=== PATIENT | male | born 1960 | race Caucasian/White ===

== ENCOUNTER → 2017-11-25 | Day surgery (SDC) | payer OTHER ==
[~2017-11-25] MED LIST: Cyanocobalamin (Vitamin B12) 1,000 MCG/ML SDV IM ONE; Glycopyrrolate 0.2 MG/ML 2 ML SDV IVPUSH ONE; Lactated Ringers 1,000 ML IV SCH; MVI, Adult with Vitamin K 10 ML, Thiamine 200 MG, Chromium/Copper/Mang/Selen/Zn 1 ML in... IV ONE; Midazolam 1 MG/ML 2 ML SDV ONE; Propofol 200 MG/20 ML SDV ONE; fentaNYL 100 MCG/2 ML SDV ONE
--- NOTE | 2017-11-26 16:43 | OR ---
DATE OF PROCEDURE: 11/25/2017 PREOPERATIVE DIAGNOSIS: Severe reflux esophagitis associated with laparoscopic adjustable gastric band. POSTOPERATIVE DIAGNOSES: 1. Marked esophageal dilation and retained bile with distal esophagitis, status post laparoscopic adjustable gastric band. 2. Mild antral gastritis. OPERATIVE PROCEDURES: Esophagogastroduodenoscopy with antral biopsies for CLOtest. ANESTHESIA: IV sedation. INDICATION FOR PROCEDURE: The patient is status post laparoscopic adjustable gastric band placement in [place] and now presents with worsening symptoms of severe esophagitis. His band had been deflated, but he still has quite marked symptoms at this point. The plan is to proceed with an upper endoscopy for evaluation. Potential risks including bleeding and perforation were discussed, and the patient wishes to proceed. DETAILS OF PROCEDURE: The patient was taken to the operating room and placed in a left lateral decubitus position. IV sedation was administered, after which the upper GI endoscope was passed orally through the length of the esophagus, into the stomach with retroflexion view of the fundus, and thereafter through the pyloric channel and into the proximal duodenum. Findings included marked generalized dilation of esophagus, this contained some retained bile within it, and marked excoriation of the distal esophagus was noted extending onto the upper stomach. The band was in proper position and, otherwise, the lumen through the band imprint was widely open, i.e. there was no mechanical obstruction. Retroflexion failed to reveal any evidence of erosion of the band. There was some mild antral gastritis. Biopsies were obtained at that location for CLOtest. The pyloric channel and proximal duodenum were unremarkable. The scope was then withdrawn after the biopsies were completed. At this point, the patient meets strong indications for removal of band and conversion to Bereket-en-Y gastric bypass. He remains morbidly obese with type 2 diabetes and given all this, conversion to gastric bypass would be medically necessary. Rey Montez MD /[id number]
== END ==
LOC: JP.SDS 07:39
PROVIDERS: ATTEND Surgery
DX: K21.0 Gastro-esophageal reflux disease with esophagitis (principal); K29.50 Unspecified chronic gastritis without bleeding; I10 Essential (primary) hypertension; E11.9 Type 2 diabetes mellitus without complications; E66.01 Morbid (severe) obesity due to excess calories; Z68.42 Body mass index [BMI] 45.0-49.9, adult; Z98.84 Bariatric surgery status; Z98.890 Other specified postprocedural states; Z88.8 Allergy status to other drugs, medicaments and biological substances; Z91.048 Other nonmedicinal substance allergy status; Z79.4 Long term (current) use of insulin; Z79.82 Long term (current) use of aspirin; Z79.899 Other long term (current) drug therapy
CPT/HCPCS: 43239; 87081; J2250; J2704; J3010; J3411; J3420; J3490; J7120

== ENCOUNTER 2018-09-15 08:00 | Inpatient (IN) | payer OTHER ==
[~2018-09-15 08:00] MED LIST changes: +Acetaminophen 500 MG Tab PO ONE; -Cyanocobalamin (Vitamin B12) 1,000 MCG/ML SDV IM ONE; -Glycopyrrolate 0.2 MG/ML 2 ML SDV IVPUSH ONE; -Lactated Ringers 1,000 ML IV SCH; -MVI, Adult with Vitamin K 10 ML, Thiamine 200 MG, Chromium/Copper/Mang/Selen/Zn 1 ML in... IV ONE; -Midazolam 1 MG/ML 2 ML SDV ONE; -Propofol 200 MG/20 ML SDV ONE; +Scopolamine 1.5 MG Transdermal Patch TOP ONE; -fentaNYL 100 MCG/2 ML SDV ONE
[2018-09-15] MEDS ORDERED: Meropenem 500 MG SDV ONE (08:18)
[2018-09-15] MEDS ORDERED: Bupivacaine 0.5%/EPINEPHrine 1:200,000 50 ML MDV ONE (08:19)
[2018-09-15] MEDS ORDERED: Albuterol/Ipratropium 3.0-0.5 MG/3 ML Neb Soln NEB ONE (08:30)
[2018-09-15] MEDS ORDERED: ceFAZolin 2 GM in Premix Bag 1 BAG IV ONE (08:30)
[2018-09-15] MEDS: Dextrose 5%-Lactated Ringers 1,000 ML IV SCH ×2 (08:39→12:20)
[2018-09-15] MEDS ORDERED: Dexamethasone 4 MG/ML SDV ONE (08:40)
[2018-09-15] MEDS ORDERED: Neostigmine Methylsulfate 1 MG/ML 5 ML Syringe ONE (08:40)
[2018-09-15] MEDS ORDERED: Ondansetron 4 MG/2 ML SDV ONE (08:40)
[2018-09-15] MEDS ORDERED: Glycopyrrolate 0.2 MG/ML 5 ML MDV ONE (08:40)
[2018-09-15] MEDS ORDERED: Propofol 200 MG/20 ML SDV ONE (08:40)
[2018-09-15] MEDS ORDERED: Rocuronium 50 MG/5 ML Vial ONE (08:40)
[2018-09-15] MEDS ORDERED: Succinylcholine 200 MG/10 ML MDV ONE (08:40)
[2018-09-15] MEDS ORDERED: fentaNYL 250 MCG/5 ML SDV ONE ×2 (08:42→11:13)
[2018-09-15] MEDS ORDERED: Ketamine 500 MG/5 ML MDV IV SCH (09:45)
[2018-09-15] MEDS ORDERED: Labetalol 20 MG/4 ML Syringe IV ONE (12:15)
[2018-09-15] MEDS ORDERED: Dextrose 5%-Lactated Ringers 1,000 ML IV SCH (13:30)
[2018-09-15] MEDS ORDERED: Acetaminophen/HYDROcodone 325-5 MG Tab PO PRN (14:28)
[2018-09-15] MEDS ORDERED: HYDROmorphone 0.5 MG/0.5 ML Syringe IVPUSH PRN (14:29)
[2018-09-15] MEDS ORDERED: HYDROmorphone 1 MG/ML Syringe IV PRN (14:32)
[2018-09-15] MEDS ORDERED: Albuterol/Ipratropium 3.0-0.5 MG/3 ML Neb Soln INH PRN (14:33)
[2018-09-15] MEDS ORDERED: Metoclopramide 10 MG/2 ML SDV IVPUSH PRN (14:33)
[2018-09-15] MEDS ORDERED: SCOPOLAMINE PATCH ASK TOP SCH (14:33)
[2018-09-15] MEDS ORDERED: Glucose Gel 15 GM in 37.5 GM Tube PO PRN (14:54)
[2018-09-15] MEDS ORDERED: Glucagon,Human Recombinant 1 MG Vial IM PRN (14:54)
[2018-09-15] MEDS ORDERED: 50% Dextrose in Water 50 ML Syringe IVPUSH PRN (14:54)
[2018-09-15] MEDS: Albuterol/Ipratropium 3.0-0.5 MG/3 ML Neb Soln INH SCH ×2 (15:11→20:45)
[2018-09-15] MEDS: metFORMIN 500 MG Tab PO SCH (16:38)
[2018-09-15] MEDS ORDERED: Insulin Lispro 100 Units/ML 3 ML Vial SUBCUT ONE (16:45)
[2018-09-15] MEDS ORDERED: Insulin Lispro 100 Unit/ML 3 ML KwikPen SUBCUT ONE (17:00)
[2018-09-15] MEDS: Lactated Ringers 1,000 ML IV SCH (17:06)
[2018-09-15] MEDS: ceFAZolin 2 GM in Premix Bag 1 BAG IV SCH (20:23)
[2018-09-15] MEDS: Montelukast 10 MG Tab PO SCH ×2 (20:30→20:32)
[2018-09-15] MEDS ORDERED: Magnesium Sulfate (4.06 MEQ/ML) 1 GM/2 ML SDV IV SCH (20:45)
[2018-09-15] MEDS ORDERED: Potassium Chloride 20 MEQ in Premix Bag 1 BAG IV ONE (21:00)
[2018-09-15] MEDS ORDERED: Lidocaine 1% PF 2 ML SDV IV ONE (21:00)
[2018-09-15] MEDS: Amitriptyline 25 MG Tab PO SCH (21:47)
[2018-09-15] MEDS: Insulin Lispro 100 Unit/ML 3 ML KwikPen SUBCUT PRN (21:52)
[2018-09-16] MEDS: Magnesium Sulfate/Water 2 GM in Premix Bag 1 BAG IV SCH ×7 (00:05→21:02)
[2018-09-16] MEDS: Lactated Ringers 1,000 ML IV SCH (00:08)
[2018-09-16] MEDS: ceFAZolin 2 GM in Premix Bag 1 BAG IV SCH ×2 (03:58→13:43)
[2018-09-16] MEDS: Acetaminophen 325 MG Tab PO PRN ×4 (04:37→17:53)
[2018-09-16] MEDS: Fluticasone-Salmeterol 113-14 MCG Powder Inhalant INH SCH (07:02)
[2018-09-16] MEDS: Albuterol/Ipratropium 3.0-0.5 MG/3 ML Neb Soln INH SCH ×4 (07:02→21:00)
[2018-09-16] MEDS ORDERED: Lactated Ringers 1,000 ML IV SCH (07:13)
--- NOTE | 2018-09-16 08:03 | PN ---
DATE OF SERVICE: 09/16/2018 SUBJECTIVE: Jasson is postoperative day 1. Blood sugars have been elevated at 380, 268 and 170 this morning. His IV was changed from D5 LR to lactated Ringer's. Magnesium is 1.2 and potassium 3.2. He has already been ordered magnesium 2 g IV as well is K-Phos. Pain is controlled. He has been afebrile. Oral intake 920. Urine output 3050. He has been up and ambulating. REVIEW OF SYSTEMS: Remainder review of systems negative for any pertinent positives and negatives. OBJECTIVE: GENERAL: Jasson Timmons is a 57-year-old male. He is alert and orientated. VITAL SIGNS: TPR is 96, 99, 18, blood pressure 152/81. HEENT: Negative. NECK: Supple. HEART: Regular rate and rhythm. LUNGS: Clear. ABDOMEN: Dressings dry and intact. Abdominal binder is on. EXTREMITIES: Without peripheral edema. ASSESSMENT: Diagnostic laparoscopy with repair of incarcerated incisional hernia and umbilical hernia, placement of Vicryl mesh, low magnesium, low potassium and diabetes type 2. Date of surgery 09/15/2018 to Surgeon Rey Montez MD. PLAN: 1. Change the patient's status to inpatient due to electrolyte disturbances. 2. Decrease IV to TKO. 3. Check CBC, CMP, phos in a.m. Bri Mosquera PA-C /[id number]
[2018-09-16] MEDS: Aspirin 81 MG Tab.EC PO SCH (08:08)
[2018-09-16] MEDS: Loratadine 10 MG Tab PO SCH (08:09)
[2018-09-16] MEDS: metFORMIN 500 MG Tab PO SCH ×2 (08:09→18:07)
[2018-09-16] MEDS: Montelukast 10 MG Tab PO SCH ×2 (08:12→21:01)
[2018-09-16] MEDS: Azelastine Nasal Soln 30 ML Spray Bottle NASBOTH SCH (08:16)
[2018-09-16] MEDS: Insulin Lispro 100 Unit/ML 3 ML KwikPen SUBCUT PRN ×4 (08:33→22:13)
[2018-09-16] MEDS: Potassium Phosphates 20 MMOLE in Sodium Chloride 0.9% 250 ML IV SCH ×3 (10:31→17:49)
[2018-09-16] MEDS: SCOPOLAMINE PATCH CHECK TOP SCH (13:50)
[2018-09-16] MEDS: Amitriptyline 25 MG Tab PO SCH (21:02)
[2018-09-17] MEDS: Magnesium Sulfate/Water 2 GM in Premix Bag 1 BAG IV SCH ×3 (01:53→09:23)
[2018-09-17] MEDS: Acetaminophen 325 MG Tab PO PRN ×2 (01:58→09:33)
[2018-09-17] MEDS: Albuterol/Ipratropium 3.0-0.5 MG/3 ML Neb Soln INH SCH ×2 (07:26→11:05)
[2018-09-17] MEDS: Fluticasone-Salmeterol 113-14 MCG Powder Inhalant INH SCH (07:26)
[2018-09-17] MEDS: metFORMIN 500 MG Tab PO SCH (09:25)
[2018-09-17] MEDS: Loratadine 10 MG Tab PO SCH (09:26)
[2018-09-17] MEDS: Aspirin 81 MG Tab.EC PO SCH (09:26)
[2018-09-17] MEDS: Azelastine Nasal Soln 30 ML Spray Bottle NASBOTH SCH (09:27)
[2018-09-17] MEDS: SCOPOLAMINE PATCH CHECK TOP SCH (09:28)
[2018-09-17] MEDS: Insulin Lispro 100 Unit/ML 3 ML KwikPen SUBCUT PRN ×2 (09:35→11:49)
[2018-09-17] MEDS ORDERED: Potassium Phosphates 20 MMOLE in Sodium Chloride 0.9% 250 ML IV SCH (10:00)
[2018-09-17] MEDS ORDERED: Magnesium Hydroxide 400 MG/5 ML Susp 30 ML Cup PO ONE (12:09)
--- NOTE | 2018-09-17 13:35 | DISCH ---
ADMISSION DIAGNOSES: 1. Incisional hernia. 2. Status post Bereket-en-Y gastric bypass surgery. 3. Unspecified surgical malabsorption. 4. B12 deficiency. 5. Diabetes, type 2. 6. Hypercholesterolemia. 7. Hypertension. 8. Insomnia. 9. Obstructive sleep apnea, on CPAP. 10.Recurrent sinusitis. DISCHARGE DIAGNOSES: 1. Diagnostic laparoscopy with repair of incarcerated incisional hernia and umbilical hernia, placement of Vicryl mesh. Date of surgery: 09/15/2018. Surgeon: Rey Montez MD. 2. Low magnesium. 3. Low potassium. 4. Diabetes, type 2. HISTORY: Jasson Timmons is a 57-year-old male with a large incarcerated incisional hernia and umbilical hernia. After preoperative evaluation and discussion of possible risks and possible complications, he wished to proceed with surgical procedure. HOSPITAL COURSE: Jasson had his surgery on 09/15/2018. He had no operative complications. On postoperative day #1, he was on a regular diet. His activity was good. His potassium, phosphorus, and magnesium were low, so they were replaced by IV. Magnesium was 1.2, potassium was 3.2. On postoperative day #2, he was able to be discharged to home. Pain was managed. Activity was good. Oral intake adequate. He was afebrile. Potassium 3.2 and phosphorus 2.4. Magnesium was not rechecked. Prior to discharge, he was given K-Phos 60 mmol IV. PHYSICAL EXAMINATION: GENERAL: Jasson is a 57-year-old male. VITAL SIGNS: Height is 6 feet 1 inch, weight is 259 pounds, BMI is 34. TPR 96.1, 92, 16, blood pressure 156/79. HEENT: Negative. NECK: Supple. HEART: Regular rate and rhythm. LUNGS: Clear. ABDOMEN: Incision is good. Pressure dressing over midline incision. Abdominal binder is on. EXTREMITIES: Without peripheral edema. DISPOSITION: Discharged to home. CONDITION: Stable and improving. FOLLOWUP: Followup appointment with Bri Mosquera PA-C, at [facility] on 09/24/2018 at 9:30 a.m. He is to come at 9:00 a.m. before his appointment and check his CBC, BMP, BNP, phosphorus, and magnesium. NEW PRESCRIPTIONS: 1. Tylenol 650 mg q.4 hours p.r.n. pain. 2. Milk of magnesia 30 mL to take one daily, #2 were sent home with the patient. 3. Magnesium oxide 400 mg oral twice daily, #60, 11 refills. 4. Klor-Con/potassium chloride 20 mEq oral twice daily, #60. He is to resume home medication: 1. Elavil 25 mg oral at bedtime. 2. Azelastine 1 applicator nasal daily. 3. Calcium citrate one oral daily. 4. Vitamin B12 1000 mcg sublingual. 5. Lunesta 3 mg oral at bedtime. 6. Ferrous fumarate 324 mg oral daily. 7. Flonase 1 spray in each nostril daily. 8. Probiotic one tablet oral daily. 9. Claritin 10 mg oral twice daily. 10.Singulair 10 mg oral at bedtime. 11.Multivitamin one tablet twice daily. 12.Januvia 100 mg oral every morning. 13.Vitamin B complex one tablet oral daily. 14.Metformin 1000 mg oral twice daily. DIET: Step 4 gastric bypass diet. Drink 8 to 10 glasses of water a day. ACTIVITY: No lifting greater than 10 pounds for 6 weeks. Walk at least 6 times daily, distance and time as tolerated. Driving: Do not drive for 1 week. Shower/bathing: May shower. DISCHARGE INSTRUCTIONS: Notify provider if any fever, increased pain, nausea, or vomiting. Keep site clean and dry. Wear abdominal binder with pressure dressing over the former hernia site for 6 weeks and then as tolerated. SPECIAL INSTRUCTIONS: Use incentive spirometer 10 times every hour while awake for 1 week. Keep a record of blood sugars twice a day and as needed.
--- NOTE | 2018-09-23 09:21 | OR ---
DATE OF PROCEDURE: 09/15/2018 SURGEON: Rey Montez MD PREOPERATIVE DIAGNOSES: 1. Incarcerated incisional hernia. 2. Umbilical hernia. POSTOPERATIVE DIAGNOSES: 1. Incarcerated incisional hernia. 2. Umbilical hernia. OPERATIVE PROCEDURES: Diagnostic laparoscopy with: 1. Repair of incarcerated incisional hernia with mesh (12165). 2. Repair of umbilical hernia with mesh (46179). 3. Placement of Vicryl mesh to displace pelvic and abdominal wall from underlying viscera to limit adhesion formation (06934). ANESTHESIA: General. INDICATIONS FOR PROCEDURE: This is a 57-year-old presenting with a nonreducible incisional hernia located in the upper abdomen. He also has a smaller umbilical hernia which appears to be reducible. Plan is to proceed with repair of these using a mesh technique. Potential risks including bleeding, infection, injury to underlying viscera, problems with mesh becoming infected or the hernia recurring were all reviewed, and the patient wishes to proceed. DETAILS OF PROCEDURE: The patient was taken to the operating room, and after general endotracheal anesthesia was induced, Gaytan catheter was inserted, which was removed at the end of the procedure, and the abdomen was prepped and draped. In the left lateral abdomen, a transverse incision was made and the peritoneal cavity entered under direct vision with an Optiview trocar, inflated to 15 mmHg pressure of CO2. Laparoscope was reinserted. No underlying trocar insertion site injuries were seen. Following this, 5 mm trocars were placed in the left upper quadrant and left lower quadrant, and the abdomen examined. As expected, the patient was noted to have quite a bit of incarcerated material in the incisional hernia. This contained some omentum, as well as loops of small bowel, which were successfully removed by means of external pulsion and some blunting of harmonic scalpel dissection. Upon reduction of the hernia, the peritoneal sac was then dissected free and excised. The patient's abdominal wall stability would appeared to be enhanced by closure of the fascia. Given this, this was accomplished with a series of #1 Vicryl sutures placed from within. The pressure was reduced from 20 mmHg to 5 during this phase to allow the fascia to be approximated by means of the sutures and Ti-Knot devices. Following this, the peritoneum over the umbilical hernia site was excised as expected, but this did not have any incarcerated component to it. The incisional hernia was then reinforced with a 20.3 cm Ventralight mesh with the balloon positioning system. The balloon catheter was pulled through the center of the area of herniation, balloon was inflated, which brought the mesh up to the abdominal wall, which was then fixed with two circumferential rows of absorbable tacking screws. The balloon was then deflated and removed, and there appeared to be coverage of the hernia in all directions. A second mesh measuring 7.6 cm was then placed underneath the umbilical hernia and similarly fixed with two circumferential firings of the absorbable tacking screws. The patient was felt to be high risk for adhesion formation between the mesh as well as the pelvic and abdominal wall in general. Given this, a 12-inch square area of Vicryl mesh was placed underneath both areas of mesh and from there down into the pelvic area to displace those surfaces from the underlying viscera. Following this, the trocars were sequentially removed. The patient had received bilateral transversus abdominis plane blocks and the incision was re-anesthetized with 0.5% Marcaine. The fascia at the 12 mm site was closed with 0 Vicryl stitch and the skin incision with 4-0 Vicryl skin stitch. Dressing was applied. The patient was taken to the recovery room in satisfactory condition. There were no evident complications. Rey Montez MD /[id number]
== END 2018-09-17 14:05 | disposition home or self-care (01) | DRG 354 ==
LOC: JP.SDS 08:00 → JP.MS 11:30 → JP.SDS 09-16 07:19 → JP.MS 09-16 07:20
PROVIDERS: ADMIT Surgery; ATTEND Surgery
PROC: 0WUF4JZ Supplement Abdominal Wall with Synthetic Substitute, Percutaneous Endoscopic Approach (ICD-10-PCS; principal; 2018-09-15)
PROC: 0WUF4JZ Supplement Abdominal Wall with Synthetic Substitute, Percutaneous Endoscopic Approach (ICD-10-PCS; 2018-09-15)
PROC: 3E0M45Z Introduction of Adhesion Barrier into Peritoneal Cavity, Percutaneous Endoscopic Approach (ICD-10-PCS; 2018-09-15)
DX: K43.0 Incisional hernia with obstruction, without gangrene (principal); K91.2 Postsurgical malabsorption, not elsewhere classified; K42.9 Umbilical hernia without obstruction or gangrene; F32.9 Major depressive disorder, single episode, unspecified; H91.90 Unspecified hearing loss, unspecified ear; I10 Essential (primary) hypertension; E78.00 Pure hypercholesterolemia, unspecified; G47.00 Insomnia, unspecified; G47.33 Obstructive sleep apnea (adult) (pediatric); E11.9 Type 2 diabetes mellitus without complications; E53.8 Deficiency of other specified B group vitamins; E83.42 Hypomagnesemia; E87.6 Hypokalemia; J32.9 Chronic sinusitis, unspecified; E66.9 Obesity, unspecified; Z68.34 Body mass index [BMI] 34.0-34.9, adult; Z88.1 Allergy status to other antibiotic agents; Z86.010 Personal history of colon polyps; Z88.8 Allergy status to other drugs, medicaments and biological substances; Z98.84 Bariatric surgery status; Z91.048 Other nonmedicinal substance allergy status
CPT/HCPCS: 36415; 80053; 82962; 83036; 83735; 84100; 85027; 88302; 94640; 94762; A9270-GY; C1781; J0171; J0330; J0690; J1100; J1170; J1815; J1815-GY; J2001; J2020; J2185; J2405; J2704; J2710; J2795; J3010; J3475; J3480; J3490; J7042; J7050; J7120; J7620-GY

== ENCOUNTER 2018-10-13 05:29 | Day surgery (SDC) | payer OTHER ==
[2018-10-13] MEDS ORDERED: Acetaminophen 500 MG Tab PO ONE (05:45)
[2018-10-13] MEDS ORDERED: Scopolamine 1.5 MG Transdermal Patch TOP ONE (05:45)
[2018-10-13] MEDS ORDERED: Celecoxib 200 MG Cap PO ONE ×2 (05:45→07:15)
[2018-10-13] MEDS ORDERED: Dextrose 5%-Lactated Ringers 1,000 ML IV SCH (06:00)
[2018-10-13] MEDS ORDERED: Bupivacaine 0.5%/EPINEPHrine 1:200,000 50 ML MDV ONE (06:31)
[2018-10-13] MEDS ORDERED: Albuterol/Ipratropium 3.0-0.5 MG/3 ML Neb Soln NEB ONE (07:00)
[2018-10-13] MEDS ORDERED: Neostigmine Methylsulfate 1 MG/ML 5 ML Syringe ONE (07:04)
[2018-10-13] MEDS ORDERED: Dexamethasone 4 MG/ML SDV ONE (07:04)
[2018-10-13] MEDS ORDERED: fentaNYL 250 MCG/5 ML SDV ONE (07:04)
[2018-10-13] MEDS ORDERED: Rocuronium 50 MG/5 ML Vial ONE ×2 (07:04→07:58)
[2018-10-13] MEDS ORDERED: Glycopyrrolate 0.2 MG/ML 5 ML MDV ONE (07:04)
[2018-10-13] MEDS ORDERED: Midazolam 1 MG/ML 2 ML SDV ONE (07:04)
[2018-10-13] MEDS ORDERED: Propofol 200 MG/20 ML SDV ONE (07:04)
[2018-10-13] MEDS ORDERED: Ondansetron 4 MG/2 ML SDV ONE (07:04)
[2018-10-13] MEDS ORDERED: cefOXitin 2 GM in Sodium Chloride 0.9% 50 ML IV ONE (07:15)
[2018-10-13] MEDS ORDERED: Ketamine 500 MG/5 ML MDV IV SCH (08:00)
[2018-10-13] MEDS ORDERED: Ketamine 50 MG in Sodium Chloride 0.9% 49.5 ML IV SCH (08:00)
[2018-10-13] MEDS ORDERED: CHECK SCOPALAMINE PATCH TOP SCH (09:00)
[2018-10-13] MEDS ORDERED: hydrOXYzine HCl 100 MG/2 ML SDV IM ONE (09:00)
[2018-10-13] MEDS ORDERED: fentaNYL 100 MCG/2 ML SDV IVPUSH ONE (09:04)
[2018-10-13] MEDS ORDERED: Insulin Lispro 100 Unit/ML 3 ML KwikPen SUBCUT ONE (09:15)
[2018-10-13] MEDS ORDERED: Ondansetron 4 MG/2 ML SDV IVPUSH PRN (10:11)
[2018-10-13] MEDS ORDERED: Azelastine Nasal Soln 30 ML Spray Bottle NASBOTH PRN (10:17)
[2018-10-13] MEDS ORDERED: 50% Dextrose in Water 50 ML Syringe IVPUSH PRN (10:19)
[2018-10-13] MEDS ORDERED: Glucagon,Human Recombinant 1 MG Vial IM PRN (10:19)
[2018-10-13] MEDS ORDERED: Glucose Gel 15 GM in 37.5 GM Tube PO PRN (10:19)
[2018-10-13] MEDS: Heparin Sodium 5,000 Units/ML Vial SUBCUT SCH ×2 (12:43→21:29)
[2018-10-13] MEDS: metFORMIN 500 MG Tab PO SCH ×2 (12:44→17:42)
[2018-10-13] MEDS: Acetaminophen 500 MG Tab PO SCH ×3 (12:44→23:54)
[2018-10-13] MEDS ORDERED: SCOPOLAMINE PATCH CHECK TOP SCH (13:13)
[2018-10-13] MEDS ORDERED: Pantoprazole 40 MG Vial IVPUSH SCH (14:00)
[2018-10-13] MEDS: cefOXitin 2 GM in Sodium Chloride 0.9% 50 ML IV SCH ×2 (14:10→19:45)
[2018-10-13] MEDS: Insulin Lispro 100 Unit/ML 3 ML KwikPen SUBCUT PRN ×3 (14:11→21:36)
[2018-10-13] MEDS: Lactated Ringers 1,000 ML IV SCH (17:56)
[2018-10-13] MEDS ORDERED: Amitriptyline 25 MG Tab PO SCH (21:00)
[2018-10-13] MEDS ORDERED: Montelukast 10 MG Tab PO SCH (21:00)
[2018-10-14] MEDS: Lactated Ringers 1,000 ML IV SCH (01:41)
[2018-10-14] MEDS: cefOXitin 2 GM in Sodium Chloride 0.9% 50 ML IV SCH ×2 (02:13→08:36)
[2018-10-14] MEDS: Acetaminophen 500 MG Tab PO SCH (06:01)
[2018-10-14] MEDS ORDERED: Celecoxib 200 MG Cap PO SCH (08:00)
[2018-10-14] MEDS: metFORMIN 500 MG Tab PO SCH (08:36)
[2018-10-14] MEDS: Insulin Lispro 100 Unit/ML 3 ML KwikPen SUBCUT PRN (08:38)
--- NOTE | 2018-10-20 13:46 | OR ---
DATE OF PROCEDURE: 10/13/2018 PREOPERATIVE DIAGNOSIS: Chronic cholecystitis and cholelithiasis. POSTOPERATIVE DIAGNOSES: 1. Subacute and chronic cholecystitis and cholelithiasis. 2. Distended appendix with visible appendicolith in proximal appendix. PROCEDURE: Diagnostic laparoscopy with: 1. Cholecystectomy (48510). 2. Appendectomy (33532). ANESTHESIA: General. DIRECTOR OF STUDENT SERVICES: Bri Mosquera PA-C. INDICATIONS FOR PROCEDURE: This is a 57-year-old presenting with some recurrent right upper quadrant pain which was associated with cholelithiasis on workup. Plan is to proceed with a laparoscopic cholecystectomy. Potential risks of the procedure including bleeding and infection with possible injury to common bile duct, possible migration of stones in the common bile duct requiring additional procedures for correction were all reviewed. The patient also wishes to have his appendix evaluated so as to avoid possible subsequent need for appendectomy and it appears to be appropriate and appendectomy will be performed concurrently. Potential risks of that procedure including bleeding, infection, injury to the viscera in that area, and possible leak from appendiceal staple line were all likewise reviewed, and the patient wishes to proceed. DETAILS OF PROCEDURE: The patient was taken to the operating room and placed in a supine position. After general endotracheal anesthesia was induced, the abdomen was prepped and draped. In the right mid abdomen, laterally a transverse incision was made. The peritoneal cavity entered under direct vision with an Optiview trocar and inflated to 15 mmHg pressure with CO2. The patient was noted to have quite in the way of adhesions in the central abdomen related to the mesh repair, but the right lateral aspect of the abdomen was quite open. Given this, in the right lower quadrant, an additional 12 mm trocar was placed, and following this, a 12 mm epigastric trocar and one additional 5 mm right upper quadrant trocar were also placed. The examination at this point showed the gallbladder to be quite edematous and distended, consistent with some subacute inflammation on top of the more chronic inflammation. The appendix was also noted to be fairly distended distally with a visible appendicolith located in the proximal appendix and the decision at this point was made to proceed with a concurrent cholecystectomy and appendectomy. The gallbladder was then retracted anteriorly and laterally, and dissection began on the gallbladder neck with Harmonic scalpel at which point the gallbladder neck, cystic duct junction, and the adjacent cystic artery were well delineated. Three clips were placed proximally, one distally on these structures and they were divided. The gallbladder was then dissected off the gallbladder bed using Harmonic scalpel and delivered through the epigastric trocar site. There was a large amount of small stones present within the gallbladder and liver. Dissection was inspected, no bleeding or bile leaks were seen. Attention was then taken to the appendectomy. The mesoappendix was then dissected away from the base of the appendix at the junction of the cecum. Appendix was then divided off flush with the cecum with a LAMONT granado load and the mesoappendix was then divided with Harmonic scalpel. Appendix was then delivered through the right lateral trocar site. At that point, no further problems noted. A single Luis-Membreno drain was taken through the right upper quadrant trocar site and placed into the gallbladder bed. Trocars were removed. Fascia at the 12 mm site was closed with 0 Vicryl stitch and the skin with 4-0 Vicryl skin stitch. Dressing was applied. The patient was then taken to the recovery room in satisfactory condition. Physician election assistant, Bri Mosquera, played an essential role in assisting in this case helping to position the patient, retract structures as needed as well as suturing and cutting sutures as indicated. Her presence improved patient safety and decreased the operative time. Rey Montez MD /[id number]
--- NOTE | 2018-10-21 08:20 | DISCH ---
FINAL DIAGNOSES: 1. Subacute and chronic cholecystitis and cholelithiasis. 2. Engorged appearing appendix. 3. Bariatric surgery status. 4. Type 2 diabetes mellitus. 5. History of asthma. OPERATIVE PROCEDURES: Done on 10/13/18, diagnostic laparoscopy with: 1. Cholecystectomy. 2. Appendectomy. SUMMARY: This is a 57-year-old male presenting with some ongoing right upper quadrant pain and workup consistent with a chronic cholecystitis and cholelithiasis. On day of admission, the patient was admitted and underwent a laparoscopic cholecystectomy. Per the patient, possibly it very well could be appendix and this actually was quite engorged distally and did have a visible appendicolith within it, so appendectomy was performed concurrently. Postoperatively, no major problems were noted. The labs look good this morning, and he will be discharged home. Continued on Tylenol and Celebrex for pain. Otherwise, the drain will be removed and followup with Bri Mosquera will be at [facility] on 10/21/2018.
== END 2018-10-14 09:25 | disposition home or self-care (01) ==
LOC: JP.SDS 05:29 → JP.MS 08:50 → JP.SDS 10-14 09:25
PROVIDERS: ATTEND Surgery
DX: K80.12 Calculus of gallbladder with acute and chronic cholecystitis without obstruction (principal); K38.8 Other specified diseases of appendix; K91.2 Postsurgical malabsorption, not elsewhere classified; E11.9 Type 2 diabetes mellitus without complications; E53.8 Deficiency of other specified B group vitamins; E55.9 Vitamin D deficiency, unspecified; J45.909 Unspecified asthma, uncomplicated; Z98.84 Bariatric surgery status; Z79.1 Long term (current) use of non-steroidal anti-inflammatories (NSAID); Z79.4 Long term (current) use of insulin; Z79.82 Long term (current) use of aspirin; Z79.51 Long term (current) use of inhaled steroids; Z79.899 Other long term (current) drug therapy
CPT/HCPCS: 36415; 44979; 47562; 82247; 82728; 82962; 84075; 85027; 88302; 88304; 94640; A9270; C9113; J0171; J0694; J1100; J1644; J1815; J2250; J2405; J2704; J2710; J2795; J3010; J3410; J3490; J7042; J7050; J7120; J7620-GY

== ENCOUNTER 2019-02-17 08:05 | Inpatient (IN) | payer OTHER ==
[~2019-02-17 08:05] MED LIST changes: +Celecoxib 200 MG Cap PO ONE; -Scopolamine 1.5 MG Transdermal Patch TOP ONE
[2019-02-17] MEDS ORDERED: Albuterol/Ipratropium 3.0-0.5 MG/3 ML Neb Soln NEB ONE (08:45)
[2019-02-17] MEDS ORDERED: Dextrose 5%-Lactated Ringers 1,000 ML IV SCH (08:45)
[2019-02-17] MEDS ORDERED: ceFAZolin 2 GM in Premix Bag 1 BAG IV ONE (09:15)
[2019-02-17] MEDS ORDERED: Ketamine 500 MG/5 ML MDV IV SCH (09:30)
[2019-02-17] MEDS ORDERED: Ketamine 50 MG in Sodium Chloride 0.9% 49.5 ML IV SCH (09:30)
[2019-02-17] MEDS ORDERED: Propofol 200 MG/20 ML SDV ONE (09:40)
[2019-02-17] MEDS ORDERED: Ondansetron 4 MG/2 ML SDV ONE (09:40)
[2019-02-17] MEDS ORDERED: Succinylcholine 200 MG/10 ML MDV ONE (09:40)
[2019-02-17] MEDS ORDERED: Dexamethasone 4 MG/ML SDV ONE (09:40)
[2019-02-17] MEDS ORDERED: Rocuronium 50 MG/5 ML Vial ONE (09:40)
[2019-02-17] MEDS ORDERED: fentaNYL 250 MCG/5 ML SDV ONE (09:40)
[2019-02-17] MEDS ORDERED: Glycopyrrolate 0.2 MG/ML 5 ML MDV ONE (09:40)
[2019-02-17] MEDS ORDERED: Neostigmine Methylsulfate 1 MG/ML 5 ML Syringe ONE (09:40)
[2019-02-17] MEDS: Meropenem 500 MG SDV ONE ×2 (10:47→11:17)
[2019-02-17] MEDS ORDERED: Lidocaine 1% with EPINEPHrine 1:100,000 50 ML MDV ONE (11:06)
[2019-02-17] MEDS ORDERED: Bupivacaine 0.5% 50 ML MDV ONE (11:06)
[2019-02-17] MEDS ORDERED: fentaNYL 100 MCG/2 ML SDV ONE (11:47)
[2019-02-17] MEDS ORDERED: HYDROmorphone 0.5 MG/0.5 ML Syringe IVPUSH PRN (13:14)
[2019-02-17] MEDS ORDERED: hydrOXYzine HCL 100 MG/2 ML SDV IM PRN (13:14)
[2019-02-17] MEDS ORDERED: Ondansetron 4 MG/2 ML SDV IVPUSH PRN (13:15)
[2019-02-17] MEDS ORDERED: Cyclobenzaprine 10 MG Tab PO PRN (13:17)
[2019-02-17] MEDS: HYDROmorphone 1 MG/ML Syringe IV PRN ×2 (13:20→16:33)
[2019-02-17] MEDS ORDERED: Glucose Gel 15 GM in 37.5 GM Tube PO PRN (13:30)
[2019-02-17] MEDS ORDERED: Glucagon,Human Recombinant 1 MG Vial IM PRN (13:30)
[2019-02-17] MEDS ORDERED: 50% Dextrose in Water 50 ML Syringe IVPUSH PRN (13:30)
[2019-02-17] MEDS: Acetaminophen 500 MG Tab PO SCH ×2 (15:20→21:45)
[2019-02-17] MEDS: Magnesium Sulfate/Water 2 GM in Premix Bag 1 BAG IV SCH ×2 (15:20→21:45)
[2019-02-17] MEDS: metFORMIN 500 MG Tab PO SCH (16:23)
[2019-02-17] MEDS: Insulin Lispro 100 Unit/ML 3 ML KwikPen SUBCUT PRN ×2 (16:26→21:47)
[2019-02-17] MEDS: Dextrose 5%-Lactated Ringers 1,000 ML IV SCH ×2 (16:35→23:56)
[2019-02-17] MEDS: ceFAZolin 2 GM in Sodium Chloride 0.9% 50 ML IV SCH (17:55)
[2019-02-17] MEDS: Doxepin 10 MG Cap PO SCH (20:21)
[2019-02-17] MEDS: Amitriptyline 25 MG Tab PO SCH (20:22)
[2019-02-17] MEDS ORDERED: Montelukast 10 MG Tab PO SCH (21:00)
[2019-02-17] MEDS: Insulin Glargine,Human Rec. Analog 100 Units/ML 3 ML Pen SUBCUT SCH (21:46)
[2019-02-18] MEDS: ceFAZolin 2 GM in Sodium Chloride 0.9% 50 ML IV SCH ×2 (02:58→09:28)
[2019-02-18] MEDS: Acetaminophen 500 MG Tab PO SCH ×4 (03:04→21:26)
[2019-02-18] MEDS: Magnesium Sulfate/Water 2 GM in Premix Bag 1 BAG IV SCH ×4 (04:41→21:26)
[2019-02-18] MEDS: Insulin Lispro 100 Unit/ML 3 ML KwikPen SUBCUT PRN ×4 (07:26→21:28)
[2019-02-18] MEDS ORDERED: HYDROmorphone 2 MG Tab PO PRN (07:48)
[2019-02-18] MEDS: Bisacodyl 5 MG Tab PO SCH ×2 (08:39→21:02)
[2019-02-18] MEDS: metFORMIN 500 MG Tab PO SCH ×2 (08:39→16:35)
[2019-02-18] MEDS: Fluticasone Propionate Nasal Spray 16 GM Bottle NASBOTH SCH (08:40)
[2019-02-18] MEDS: Lisinopril 5 MG Tab PO SCH (08:40)
[2019-02-18] MEDS: Aspirin 81 MG Tab.EC PO SCH (08:40)
[2019-02-18] MEDS: Montelukast 10 MG Tab PO SCH (08:41)
--- NOTE | 2019-02-18 09:29 | PN ---
DATE OF SERVICE: 02/18/2019 SUBJECTIVE: Jasson is postoperative day #1. He states his pain is controlled. He has been up ambulating. Vital signs have been stable. Blood sugars have been 236 and 161. Oral intake 2100. Urine output 3890. REVIEW OF SYSTEMS: Remainder of review of systems negative for any pertinent positives and negatives. OBJECTIVE: GENERAL: Jasson Timmons is a 58-year-old male. He is alert and orientated. VITAL SIGNS: TPR is 98.7, 72, 16, blood pressure 140/71. HEENT: Negative. NECK: Supple. HEART: Regular rate and rhythm. LUNGS: Clear. ABDOMEN: Dressing dry and intact. Abdominal binder is on. EXTREMITIES: Without peripheral edema. ASSESSMENT: 1. Exploratory laparotomy with lysis of adhesions. a. Repair of recurrent incisional hernia with mesh. b. Placement of Vicryl mesh for recurrent incisional hernia and extensive intraabdominal adhesions. Date of surgery: 02/17/2019. Surgeon: Rey Montez MD. PLAN: 1. Discontinue Gaytan catheter. 2. Dilaudid 2 mg, 1 to 2 every 4 hours p.r.n. pain. 3. Senokot Plus 2 b.i.d. until the patient has bowel movement, then discontinue. 4. Dulcolax 2 tablets b.i.d. until the patient has bowel movement. 5. Saline lock IV. 6. Continue to ambulate 6 times daily and use incentive spirometer as directed. 7. Plan discharge in a.m. 8. We will evaluate p.r.n. or in a.m. Bri Mosquera PA-C /[id number]
[2019-02-18] MEDS ORDERED: Tamsulosin 0.4 MG Cap.ER PO SCH (21:00)
[2019-02-18] MEDS: Doxepin 10 MG Cap PO SCH (21:02)
[2019-02-18] MEDS: Amitriptyline 25 MG Tab PO SCH (21:27)
[2019-02-18] MEDS: Insulin Glargine,Human Rec. Analog 100 Units/ML 3 ML Pen SUBCUT SCH (21:27)
[2019-02-19] MEDS: Magnesium Sulfate/Water 2 GM in Premix Bag 1 BAG IV SCH (03:07)
[2019-02-19] MEDS: Acetaminophen 500 MG Tab PO SCH ×2 (03:07→08:34)
[2019-02-19] MEDS: metFORMIN 500 MG Tab PO SCH (08:34)
[2019-02-19] MEDS: Lisinopril 5 MG Tab PO SCH (08:34)
[2019-02-19] MEDS: Aspirin 81 MG Tab.EC PO SCH (08:34)
[2019-02-19] MEDS: Montelukast 10 MG Tab PO SCH (08:34)
[2019-02-19] MEDS: Bisacodyl 5 MG Tab PO SCH (08:35)
[2019-02-19] MEDS: Fluticasone Propionate Nasal Spray 16 GM Bottle NASBOTH SCH (08:35)
--- NOTE | 2019-02-19 09:03 | DISCH ---
ADMISSION DIAGNOSES: 1. Recurrent incisional hernia. 2. Status post Bereket-en-Y gastric bypass surgery. 3. Unspecified surgical malabsorption. 4. B12 deficiency. 5. Vitamin D deficiency. 6. Type 2 diabetes. 7. Hypercholesterolemia. 8. Hypertension. 9. Insomnia. 10.Obstructive sleep apnea. 11.Recurrent sinusitis. DISCHARGE DIAGNOSES: Exploratory laparotomy with: 1. Lysis of adhesions. 2. Repair of recurrent incisional hernia with mesh. 3. Placement of Vicryl mesh. POSTOPERATIVE DIAGNOSIS: Recurrent incisional hernia and extensive intraabdominal adhesions. Date of surgery: 02/17/2019. Surgeon: Rey Montez MD. HISTORY: Jasson Timmons is a 58-year-old male with recurrent incisional hernia. After preoperative evaluation and discussion of possible risks and possible complications, he wished to proceed with surgical procedure. HOSPITAL COURSE: Jasson had his surgery on 02/17/2019. He had no operative complications. On postoperative day #1, he was started on bowel stimulation. Gaytan catheter was discontinued and he was started on a step 3 consistent carb diet. Blood sugars remained within normal limits. On postoperative day #2, his pain was managed, activity was good, vital signs stable. Oral intake adequate. He did have some problems with urinary retention and was started on Flomax, which resolved shortly after taking the Flomax. He was able to be discharged to home on 02/19/2019. PHYSICAL EXAMINATION: GENERAL: Jasson Timmons is a 58-year-old male. VITAL SIGNS: Height is 6 feet 1 inch, weight is 236 pounds, BMI is 31. TPR 98.3, 78, 16, blood pressure 141/68. HEENT: Negative. NECK: Supple. HEART: Regular rate and rhythm. LUNGS: Clear. ABDOMEN: Aquacel dressing was removed. Concepcion intact. Concepcion at the peripheral areas of his abdomen intact. Abdominal binder has been on with pressure dressing. Rolled Kerlix over in hernia site. EXTREMITIES: Without peripheral edema. DISPOSITION: Discharged to home. CONDITION: Stable and improving. FOLLOWUP: Followup appointment on 02/26/2019 at 9:15 a.m. with Bri Mosquera PA-C, at [facility]. HOME MEDICATIONS: 1. Tylenol 1000 mg oral q.6 hours p.r.n. pain. 2. Dilaudid 2 mg q.6 hours p.r.n. pain, #28. 3. Flomax 0.4 mg oral at bedtime, #30. He is to resume his home medications: 1. Elavil 25 mg oral at bedtime. 2. Aspirin 81 mg oral daily. 3. Azelastine one applicator nasal twice daily. 4. Calcium citrate one tablet twice daily. 5. Celebrex 200 mg p.o. daily. 6. Vitamin D3 5000 International Units daily. 7. Citalopram 10 mg oral daily. 8. Vitamin B12 1000 mcg sublingual twice daily. 9. Flexeril 10 mg oral 3 times a day. 10.Doxepin 20 mg oral at bedtime. 11.Lunesta 3 mg oral at bedtime p.r.n. sleep. 12.Ferrous fumarate 324 mg oral daily. 13.Flonase 2 inhalation in each nostril once daily. 14.Lantus 5 units subcu at bedtime. 15.Probiotic 1 tablet oral daily. 16.Lisinopril 5 mg oral daily. 17.Claritin 10 mg oral daily. 18.Magnesium oxide 800 mg oral every morning. 19.Magnesium oxide 1200 mg oral every evening. 20.Singulair 10 mg oral every morning. 21.Multivitamin one tablet twice daily. 22.Klor-Con 20 mEq twice daily. 23.Januvia 100 mg oral every morning. 24.Vitamin B complex one daily. 25.Metformin 1000 mg oral twice daily. DIET: Step 4 gastric bypass diet, diabetic diet. Drink 8 to 10 glasses of water a day. ACTIVITY: No lifting greater than 10 pounds for 4 weeks. Driving: Do not drive for 6 hours after taking pain medication. Shower/bathing: May shower. DISCHARGE INSTRUCTIONS: Notify provider if any fever, increased pain, nausea, or vomiting. Keep site clean and dry. Wear abdominal binder 8 weeks. Wear a pressure dressing over the hernia site for 2 weeks with abdominal binder over it. SPECIAL INSTRUCTIONS: Use incentive spirometer 10 times every hour while awake for 1 week.
--- NOTE | 2019-02-25 15:41 | OR ---
DATE OF PROCEDURE: 02/17/2019 SURGEON: Rey Montez MD PREOPERATIVE DIAGNOSIS: Recurrent incarcerated incisional hernia. POSTOPERATIVE DIAGNOSES: 1. Recurrent incarcerated incisional hernia. 2. Extensive intraabdominal adhesions. OPERATIVE PROCEDURE: Exploratory laparotomy with lysis of adhesions. 1. Repair of recurrent incarcerated incisional hernia with mesh (29030, 52915). 2. Placement of Vicryl mesh to limit recurrent adhesion formation between pelvic and abdominal wall and underlying viscera (77373). ANESTHESIA: General. ASSISTANTS: Bri Mosquera PA-C, and Asad Goins MS-3. INDICATION FOR PROCEDURE: The patient is status post previous laparoscopic repair of upper abdominal incisional hernia and now has recurrence of this, which appears to be not entirely reducible. The patient now has a significant diastasis rectus, which is evident when he does a maneuver such as a sit-up. This is a separate finding from the incisional hernia, however. The plan is to proceed with an open repair of this recurrent hernia. At the time of the patient's recent gallbladder and appendix removal, he was noted to have intense adhesions between the bowel and the previously-placed mesh, which would make open approach preferable. Potential risks of the procedure including bleeding, infection, injury to the underlying viscera, problems with the hernia recurring or the mesh becoming infected, as well as possibility of cardiopulmonary, septic, or hemorrhagic complications leading to were discussed, and the patient wishes to proceed. DETAILS OF PROCEDURE: The patient was taken to the operating room and placed in a supine position. After general endotracheal anesthesia was induced, a Gaytan catheter was inserted, and the abdomen prepped and draped. An upper midline incision was then made and carried down through the skin, subcutaneous tissue, and down to the level of fascia. The mesh in the midline area was intact. Just to the right of the midline, there was a defect in the mesh where there was some incarcerated omentum and an edge of the transverse colon. These were carefully reduced and the remaining adhesions from this area were then taken down. Portion of the previously placed mesh was then excised as well to facilitate more adequate closure. A new Ventralight ST mesh with diameters of 17 x 24 cm was selected. The patient's main stress level appeared to be in the transverse direction in terms of fascial closure, thus the mesh was oriented with a long axis in the transverse orientation with 5 cm intervals. The polypropylene side of the mesh was sutured with some 2-0 Vicryl stitch and at the premarked locations in the skin, small stab wounds were made, and after being soaked in antibiotic-containing saline solution, first the mesh was placed in intraperitoneal location prior to being laterally placed. A 12-inch square of Vicryl mesh was placed along the pelvic and abdominal wall, including underlying the new mesh area, to limit recurrent adhesion formation. Once all sutures were placed, they were pulled up and tied, which secured the mesh initially in a location well away from the previous hernia location. The mesh was then additionally reinforced in the underside of the shelf of the mesh with titanium tacking screws. These were all protected from direct contact with the peritoneal cavity based on the location. Once this was accomplished, the area was inspected. No bleeding or other problems were noted. The area was once again irrigated with antibiotic- containing saline solution. The midline fascia was then approximated with #2 Vicryl stitch, the subcutaneous tissue with 3-0 Vicryl stitch, subdermal tissue with 4-0 Vicryl stitch, and skin with speedy. Dressing was applied. The patient was taken to the recovery room in satisfactory condition. Physician shipping assistant, Bri Mosquera, played an essential role in assisting in this case, helping to position the patient, retract structures as needed, as well as suturing and cutting sutures when indicated. Her presence improved patient safety and decreased the operative time. Rey Montez MD /[id number]
== END 2019-02-19 09:17 | disposition home or self-care (01) | DRG 354 ==
LOC: JP.MS 08:05 → JP.SDS 08:05 → EDSTATUS 10:00 → JP.2SS 12:05
PROVIDERS: ADMIT Surgery; ATTEND Surgery
PROC: 0WUF0JZ Supplement Abdominal Wall with Synthetic Substitute, Open Approach (ICD-10-PCS; principal; 2019-02-17)
PROC: 3E0M05Z Introduction of Adhesion Barrier into Peritoneal Cavity, Open Approach (ICD-10-PCS; 2019-02-17)
DX: K43.0 Incisional hernia with obstruction, without gangrene (principal); K90.9 Intestinal malabsorption, unspecified; K66.0 Peritoneal adhesions (postprocedural) (postinfection); E53.8 Deficiency of other specified B group vitamins; E55.9 Vitamin D deficiency, unspecified; E11.9 Type 2 diabetes mellitus without complications; E78.00 Pure hypercholesterolemia, unspecified; I10 Essential (primary) hypertension; G47.00 Insomnia, unspecified; G47.33 Obstructive sleep apnea (adult) (pediatric); J32.9 Chronic sinusitis, unspecified; E66.01 Morbid (severe) obesity due to excess calories; R33.9 Retention of urine, unspecified; F42.9 Obsessive-compulsive disorder, unspecified; K21.9 Gastro-esophageal reflux disease without esophagitis; E53.9 Vitamin B deficiency, unspecified; Z99.81 Dependence on supplemental oxygen; Z98.890 Other specified postprocedural states; Z79.82 Long term (current) use of aspirin; Z98.84 Bariatric surgery status; Z79.899 Other long term (current) drug therapy; Z91.048 Other nonmedicinal substance allergy status; Z88.1 Allergy status to other antibiotic agents; Z88.8 Allergy status to other drugs, medicaments and biological substances; Z85.038 Personal history of other malignant neoplasm of large intestine; Z79.84 Long term (current) use of oral hypoglycemic drugs; Z68.31 Body mass index [BMI] 31.0-31.9, adult
CPT/HCPCS: 51798; 82962; 88300; 94640; 94762; A9270-GY; C1713; C1781; J0171; J0330; J0690; J1100; J1170; J1815; J1815-GY; J2020; J2185; J2405; J2704; J2710; J2795; J3010; J3475; J3490; J7050; J7121; J7620-GY